=== PATIENT | female | born 1980 | race Caucasian/White ===

== ENCOUNTER 2017-09-02 17:06 | Observation (INO) ==
[2017-09-02] MEDS ORDERED: 0.9 % Sodium Chloride 1,000 ML IVC ONE (17:50)
[2017-09-02] MEDS ORDERED: Prochlorperazine 10 MG/2 ML VIAL IVP STA (17:50)
[2017-09-02] MEDS ORDERED: Dexamethasone 4 MG/ML VIAL IVP ONE (18:07)
--- NOTE | 2017-09-02 18:07 | Emergency Department Note ---
Disposition Clinical Impression: Intractable pain Headache Qualifiers: Headache type: unspecified Headache chronicity pattern: acute headache Intractability: intractable Qualified Code(s): R51 - Headache Disposition: Admitted As Inpatient Condition: Fair Referrals: Bob Solomon MD [Primary Care Provider] - Forms: ED Satisfaction Letter Headache HPI - General Chief Complaint: ED Headache Stated Complaint: Migraine Time Seen by Provider: 09/02/17 17:24 Nursing Notes Reviewed: Yes Vital Signs Reviewed: Yes - History of Present Illness HPI Narrative: 37-year-old female presented to the emergency department with concern for headache. Patient states that she was seen here in the emergency department received a CT scan and was offered admission but decided to go home. Patient was given medications yesterday. Patient used to have a neurologist but does not follow up with one. She takes Urised and ibuprofen at home. Patient states she is also not seen her primary care provider for this either. Patient reports that the headache that started yesterday did not resolve. She reported sudden onset of numbness and tingling of the left upper extremities fingertips that is atypical for headache. She reports that the pain is mostly centered on the right side of her face. Reports decreased sensation on the right side of her face as well. No slurred speech. No other neurologic abnormalities. Patient denies any blurry vision. She does report having to focus a little bit harder. Denies any pain behind the eyes or in the eye. Pain Scale: 10 - Related Data Home Medications Medication Instructions Recorded Confirmed Ibuprofen 11/05/16 Albuterol Sulfate [Albuterol 1 IH TID 05/23/17 Inhaler] Furosemide [Lasix] 20 mg PO DAILY 05/23/17 05/23/17 Loratadine [Claritin] 10 mg PO DAILY 05/23/17 05/23/17 Previous Rx's Medication Instructions Recorded Acetaminophen [Tylenol] 325 mg PO Q6HR PRN #10 tablet 03/21/15 Benzonatate [Tessalon] 100 mg PO TID PRN #15 capsule 05/23/17 Promethazine [Phenergan] 12.5 mg PO Q6HR PRN #15 tablet 05/23/17 Acetaminophen/Butalbital/Caffe 1 each PO Q6HR #20 tablet 09/01/17 [Fioricet] Ibuprofen [Motrin] 600 mg PO Q6HR PRN #20 tab 09/01/17 Allergies Allergy/AdvReac Type Severity Reaction Status Date / Time clindamycin Allergy Hives Verified 09/01/17 10:48 ondansetron Allergy Hives Verified 09/01/17 10:48 [From Zofran (as hydrochloride)] Penicillins Allergy Unresponsiv Verified 09/01/17 10:48 e tramadol Allergy Hives Verified 09/01/17 10:48 All systems ED: reviewed and negative except as stated. Review of Systems: As Per HPI Constitutional: Denies: fever Cardiovascular: Denies: chest pain Respiratory: Denies: cough Gastrointestinal: Denies: abdominal pain, nausea, vomiting Genitourinary: Denies: urgency, dysuria, frequency Musculoskeletal: Reports: neck pain Integumentary: Denies: rash Neurological: Reports: headache, numbness, paresthesias Headache PMH - Past Medical History Medical history: Reports: asthma, COPD, kidney stones, migraine, other Female Surgical History: Reports: hysterectomy, orthopedic, other, other Psychiatric history: Reports: anxiety, panic disorder RESPIRATORY CARE SPECIALIST history: Reports: no RESPIRATORY CARE SPECIALIST history, other - Social History Smoking Status: Current every day smoker Alcohol use: Reports: none Drug use: Reports: none Physical Exam - Head Head exam: atraumatic, normocephalic - Eye Eye exam: Present: EOMI. Absent: scleral icterus - ENT ENT exam: normal exam, normal oropharynx - Neck Neck exam: Present: trachea midline. Absent: tenderness, meningismus - Chest Chest inspection: Present: normal inspection, symmetric chest wall rise - Respiratory Respiratory exam: Present: normal lung sounds bilaterally. Absent: respiratory distress, accessory muscle use - Cardiovascular Cardiovascular exam: Present: normal rhythm, tachycardia - Abdominal Exam Abdominal exam: Present: soft, Non-Tender. Absent: distention, guarding, rebound - Back Exam Back exam: Present: full ROM - Neurological Exam Neurological exam: Present: alert, oriented X3 - Psychiatric Psychiatric exam: Present: anxious - Skin Skin exam: Present: warm, dry, intact Course Vital Signs Temperature 98.0 F 09/02/17 17:07 Pulse Rate 117 09/02/17 17:07 Respiratory Rate 16 09/02/17 17:07 Blood Pressure 129/77 09/02/17 17:07 O2 Sat by Pulse Oximetry 97 09/02/17 17:07 Temperature 98.0 F 09/02/17 18:21 Pulse Rate 117 09/02/17 18:21 Respiratory Rate 16 09/02/17 18:21 Blood Pressure 129/77 09/02/17 18:21 O2 Sat by Pulse Oximetry 97 09/02/17 18:21 Oxygen Delivery Oxygen Delivery Room Air Headache - MDM Narrative Medical decision making narrative: 37-year-old female presented to emergency department with concern for headache that has some typical features of her normal headaches, but also some atypical features as well. We will obtain CT scan of the head did not reveal any evidence of an acute intracranial abnormality. Do not suspect subarachnoid hemorrhage at this time as patient's headache was not thunderclap, and has some typical features of her normal headaches. Patient has mild leukocytosis, but does not have fever, or meningismus. Nontoxic appearing as well. No concern for meningitis at this time. EKG was obtained not revealing any evidence of ischemia or QT prolongation. Patient mildly hypokalemic at 3.3. We have replaced his 40 meq of potassium. Patient was given Compazine, Benadryl, IV fluids initially. She had taken ibuprofen prior to coming to the emergency department. Patient states that her headache was a 10 out of 10 and is now an 8 out of 10. We then gave 5 mg of Haldol IV. After 30 minutes, patient still had headache. Patient requests admission as she still having persistent pain. Patient was admitted to hospitalist, Dr. Ford, as patient is having intractable pain here in the emergency department. Per his request, I spoke with Dr. Barkley, the neurologist. I asked him if he thought it was okay to give sumatriptan and after all the previous medications. He said to provide this and to also add Toradol. As patient has not had nonsteroidal anti- inflammatories within the last few hours, given that as well. Head CT 09/02/17 17:51 IMPRESSION: No acute intracranial abnormality. D/ / Petra Guy MD / Petra Guy MD Interpreting Provider: Petra Guy MD Vital Signs Temperature 98.0 F 09/02/17 17:07 Pulse Rate 117 09/02/17 17:07 Respiratory Rate 16 09/02/17 17:07 Blood Pressure 129/77 09/02/17 17:07 O2 Sat by Pulse Oximetry 97 09/02/17 17:07 Temperature 98.0 F 09/02/17 18:21 Pulse Rate 117 09/02/17 18:21 Respiratory Rate 16 09/02/17 18:21 Blood Pressure 129/77 09/02/17 18:21 O2 Sat by Pulse Oximetry 97 09/02/17 18:21 Oxygen Delivery Oxygen Delivery Room Air - Lab Data Result diagrams: 09/02/17 18:00 09/02/17 18:00 Lab Results 09/02/17 09/02/17 Range/Units 18:00 18:00 WBC 14.7 H (4.3-11.1) K/mcL RBC 3.96 (3.82-4.97) M/mcL Hgb 12.1 (11.5-15.4) g/dL Hct 36.4 (35.3-44.9) % MCV 91.9 (83.0-100.0) fL MCH 30.6 (28.0-33.3) pg MCHC 33.2 (31.6-35.5) g/dL RDW 12.0 (11.5-14.5) % Plt Count 272 (140-400) K/mcL MPV 9.2 L (9.4-12.4) fL Immature Gran % 0.3 (0-4) % Seg Neutrophils % 67.3 % Lymphocytes % 25.0 % Monocytes % 6.7 % Eosinophils % 0.5 % Basophils % 0.2 % Neutrophils # 9.9 H (1.6-8.9) K/mcL Lymphocytes # 3.7 (0.6-4.6) K/mcL Monocytes # 1.0 (0.0-1.3) K/mcL Eosinophils # 0.1 (0.0-0.6) K/mcL Basophils # 0.0 (0.0-0.2) K/mcL Sodium 141 (136-145) mEq/L Potassium 3.3 L (3.5-5.1) mEq/L Chloride 110 H (98-107) mEq/L Carbon Dioxide 27 (23-29) mEq/L BUN 7 (6-20) mg/dL Creatinine 0.75 (0.60-1.20) mg/dL Est GFR ( Amer) > 60 (> 60) Est GFR (Non-Af Amer) > 60 (> 60) BUN/Creatinine Ratio 9 (6-26) Glucose 120 H (70-105) mg/dL Calculated Osmolality 291 (280-300) Calcium 9.0 (8.6-10.3) mg/dL - EKG Data EKG attestation: Yes I reviewed and interpreted this EKG. EKG results narrative: 17:53 Ventricular rate 105 bpm, MA interval 129 ms, QS jehovah's witness 86 segs, QT 326 ms , QTC 387 ms, normal axis. Sinus tachycardia with a ventricular rate of 105 bpm. There is no evidence of QT prolongation on this EKG. No evidence of any ischemic ST changes.
[2017-09-02 18:12] LABS: Basophils % 0.2 %; Eosinophils # 0.1 K/mcL (0.0-0.6); Eosinophils % 0.5 %; Hematocrit 36.4 % (35.3-44.9); Hemoglobin 12.1 g/dL (11.5-15.4); Immature Granulocytes % 0.3 % (0-4); Lymphocytes # 3.7 K/mcL (0.6-4.6); Mean Corpuscular HGB Conc 33.2 g/dL (31.6-35.5); Mean Corpuscular Hemoglobin 30.6 pg (28.0-33.3); Mean Corpuscular Volume 91.9 fL (83.0-100.0); Mean Platelet Volume 9.2 fL (9.4-12.4); Monocytes % 6.7 %; Neutrophils # 9.9 K/mcL (1.6-8.9); Platelet Count 272 K/mcL (140-400); Red Blood Count 3.96 M/mcL (3.82-4.97); Segmented Neutrophils % 67.3 %
[2017-09-02 18:30] LABS: BUN/Creatinine Ratio 9 (6-26); Blood Urea Nitrogen 7 mg/dL (6-20); Carbon Dioxide 27 mEq/L (23-29); Chloride 110 mEq/L (98-107); Glucose 120 mg/dL (70-105); Osmolality,Calculated 291 (280-300); Potassium 3.3 mEq/L (3.5-5.1); Sodium 141 mEq/L (136-145); eGFR For African Americans > 60 (> 60); eGFR For Non-African Americans > 60 (> 60)
[2017-09-02] MEDS ORDERED: Haloperidol Lactate 5 MG/ML VIAL IVP ONE (19:28)
[2017-09-02] MEDS ORDERED: Ketorolac 15 MG/ML VIAL IVP ONE (20:33)
[2017-09-02] MEDS ORDERED: SUMAtriptan 6 MG/0.5 ML SQ ONE (20:33)
[2017-09-02] MEDS ORDERED: Naloxone 0.4 MG/ML INJ IVP PRN (20:48)
--- NOTE | 2017-09-02 20:53 | Emergency Department Note ---
Disposition Clinical Impression: Intractable pain Headache Qualifiers: Headache type: unspecified Headache chronicity pattern: acute headache Intractability: intractable Qualified Code(s): R51 - Headache Disposition: Admitted As Inpatient Condition: Fair General Adult HPI - General Chief complaint: ED Headache Stated complaint: Migraine Time Seen by Provider: 09/02/17 17:24 Source: patient, family - History of Present Illness Pain Scale: 10 - Related Data Home Medications Medication Instructions Recorded Confirmed No Known Home Drugs 09/02/17 09/02/17 Allergies Allergy/AdvReac Type Severity Reaction Status Date / Time clindamycin Allergy Hives Verified 09/02/17 21:23 ondansetron Allergy Hives Verified 09/02/17 21:23 [From Zofran (as hydrochloride)] Penicillins Allergy Unresponsiv Verified 09/02/17 21:23 e tramadol Allergy Hives Verified 09/02/17 21:23 Constitutional: Denies: fever Cardiovascular: Denies: chest pain Respiratory: Denies: cough Gastrointestinal: Denies: abdominal pain, nausea, vomiting Genitourinary: Denies: urgency, dysuria, frequency Musculoskeletal: Reports: neck pain Integumentary: Denies: rash Neurological: Reports: headache, numbness, paresthesias Past Medical History - Past Medical History Medical history: Reports: asthma, COPD, kidney stones, migraine, other Surgical history: Reports: hysterectomy, orthopedic, other, other Psychiatric history: Reports: anxiety, panic disorder IT INVESTMENT/PORTFOLIO MANAGER history: Reports: no IT INVESTMENT/PORTFOLIO MANAGER history, other - Social History Smoking Status: Current every day smoker Smokeless Tobacco Status: No Alcohol use: Reports: none Drug use: Reports: none Physical Exam - General General appearance: alert, in no apparent distress Course Vital Signs Temperature 98.0 F 09/02/17 17:07 Pulse Rate 117 09/02/17 17:07 Respiratory Rate 16 09/02/17 17:07 Blood Pressure 129/77 09/02/17 17:07 O2 Sat by Pulse Oximetry 97 09/02/17 17:07 Temperature 98.0 F 09/02/17 18:21 Pulse Rate 117 09/02/17 18:21 Respiratory Rate 16 09/02/17 18:21 Blood Pressure 129/77 09/02/17 18:21 O2 Sat by Pulse Oximetry 97 09/02/17 18:21 Oxygen Delivery Oxygen Delivery Room Air Medical Decision Making - Lab Data Result diagrams: 09/02/17 18:00 09/02/17 18:00 Lab Results 09/02/17 09/02/17 Range/Units 18:00 18:00 WBC 14.7 H (4.3-11.1) K/mcL RBC 3.96 (3.82-4.97) M/mcL Hgb 12.1 (11.5-15.4) g/dL Hct 36.4 (35.3-44.9) % MCV 91.9 (83.0-100.0) fL MCH 30.6 (28.0-33.3) pg MCHC 33.2 (31.6-35.5) g/dL RDW 12.0 (11.5-14.5) % Plt Count 272 (140-400) K/mcL MPV 9.2 L (9.4-12.4) fL Immature Gran % 0.3 (0-4) % Seg Neutrophils % 67.3 % Lymphocytes % 25.0 % Monocytes % 6.7 % Eosinophils % 0.5 % Basophils % 0.2 % Neutrophils # 9.9 H (1.6-8.9) K/mcL Lymphocytes # 3.7 (0.6-4.6) K/mcL Monocytes # 1.0 (0.0-1.3) K/mcL Eosinophils # 0.1 (0.0-0.6) K/mcL Basophils # 0.0 (0.0-0.2) K/mcL Sodium 141 (136-145) mEq/L Potassium 3.3 L (3.5-5.1) mEq/L Chloride 110 H (98-107) mEq/L Carbon Dioxide 27 (23-29) mEq/L BUN 7 (6-20) mg/dL Creatinine 0.75 (0.60-1.20) mg/dL Est GFR ( Amer) > 60 (> 60) Est GFR (Non-Af Amer) > 60 (> 60) BUN/Creatinine Ratio 9 (6-26) Glucose 120 H (70-105) mg/dL Calculated Osmolality 291 (280-300) Calcium 9.0 (8.6-10.3) mg/dL Attestation Statement - Attestation Attestation: I examined this patient and my medical decision-making was reviewed with the Resident Physician, Dr. Vu. I agree with the documented findings, disposition and treatment plan as described except to the extent set forth below. Patient is a 37-year-old white female with a history of chronic migraine headaches who presented initially to the emergency department yesterday and was seen and evaluated underwent CT imaging which was within normal limits received pain medicine with improvement of her symptoms and was discharged home. Patient required multiple doses medications and was offered admission for symptomatic control and she declined but returns tonight stating that she is not had resolution of her headache. Headache was gradual in onset, similar in character location and severity to prior headaches but patient is now complaining of a one hour history of numbness that she is feeling her face and fingertips which is new and not typically associated with her headaches. Patient denies any fevers or chills, no photophobia, no other associated symptoms. Patient had followed a neurologist in the past but not currently and she has not followed up with her family doctor. I agree with patient's physical exam findings as documented. Vital signs are stable. Patient's neurologic exam is within normal limits with the exception of subjective paresthesias Patient received initially Compazine and Benadryl for her symptoms she got improvement from a 10 out of 10 to an 8 out of 10 with this medication. EKG was performed which showed a normal sinus rhythm with no QT prolongation so patient was administered 5 mg Haldol IV which although improved her headache she stating that she still having intractable pain. Patient does not feel comfortable going home does not feel that she has had significant enough improvement in her symptoms. Case was discussed with the hospitalist as well as neurology was consulate from the ED and will be admitted for further evaluation and management of her chronic migraine headaches.
[2017-09-02] MEDS ORDERED: Ringers Solution, Lactated 1,000 ML IVC SCH (21:00)
--- NOTE | 2017-09-02 21:03 | Internal Med History&Physical ---
Date of Encounter: 09/02/17 Time of Encounter: 21:07 Internal Medicine - H&P: HPI Chief complaint: Refractory migraine History of present illness: Ms. 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 She is under the care of Dr. Solomon PCP and had been reported to have not filled multiple outpatient medications to include Topamax. Presented with migraine yesterday to the ER and was subsequently discharged home with first set, ibuprofen, Tylenol with no improvement leading to repeat visit to the ER. In the ER had a CT scan of the head without contrast which did not demonstrate acute abnormalities. She was given migraine cocktails with no improvement. In regards to her current migraine episode, she reported waking up at 5 AM yesterday morning with frontal migraine that is affecting her right side more than the left. Associated with an aura described as numbness and tingling of the left finger tips. Migraines were made worse with sound and light. Pain was described as sharp, 8 out of 10. EKG personally reviewed with rate of 105. Sinus tachycardia Past Med Surg Social Fam HX - Past Medical History Medical history: asthma, COPD, kidney stones, migraine, other Additional medical history: FREQUENT PNEUMONIA Psychiatric history: anxiety, panic disorder - Past Surgical History Surgical History: hysterectomy, orthopedic, other, other Additional surgical history: ORIF LEFT ANKLE. CARDIAC ABLAISION. POSSIBLE DIAGNOSIS OF SVT. - Social History Smoking Status: Current every day smoker Smokeless Tobacco Status: No Alcohol use: none Drug use: none - Family History Mother Hx Family Cardiac Disorders: Yes (Myocardial Infarction, HTN) Father Hx Family Cardiac Disorders: Yes (HTN) Internal Medicine - H&P: Meds Acetaminophen [Tylenol] 325 mg PO Q6HR PRN #10 tablet 03/21/15 [Rx] Ibuprofen 11/05/16 [History] Albuterol Sulfate [Albuterol Inhaler] 1 IH TID 05/23/17 [History] Benzonatate [Tessalon] 100 mg PO TID PRN #15 capsule 05/23/17 [Rx] Furosemide [Lasix] 20 mg PO DAILY 05/23/17 [History] Loratadine [Claritin] 10 mg PO DAILY 05/23/17 [History] Promethazine [Phenergan] 12.5 mg PO Q6HR PRN #15 tablet 05/23/17 [Rx] Acetaminophen/Butalbital/Caffe [Fioricet] 1 each PO Q6HR #20 tablet 09/01/17 [Rx ] Ibuprofen [Motrin] 600 mg PO Q6HR PRN #20 tab 09/01/17 [Rx] 3 Allergy/AdvReac Type Severity Reaction Status Date / Time clindamycin Allergy Hives Verified 09/01/17 10:48 ondansetron Allergy Hives Verified 09/01/17 10:48 [From Zofran (as hydrochloride)] Penicillins Allergy Unresponsiv Verified 09/01/17 10:48 e tramadol Allergy Hives Verified 09/01/17 10:48 All Systems PM: A 10-system review of systems was performed and is negative for pertinent findings except as documented above in the HPI. - Constitutional Vitals: Temp Pulse Resp BP Pulse Ox 98.0 F 117 16 129/77 97 09/02/17 18:21 09/02/17 18:21 09/02/17 18:21 09/02/17 18:21 09/02/17 18:21 Internal Med - H&P Results - Labs CBC & Chem 7: 09/02/17 18:00 09/02/17 18:00 Labs: Short CBC 09/02/17 Range/Units 18:00 WBC 14.7 H (4.3-11.1) K/mcL Hgb 12.1 (11.5-15.4) g/dL Hct 36.4 (35.3-44.9) % Plt Count 272 (140-400) K/mcL Neutrophils # 9.9 H (1.6-8.9) K/mcL BMP 09/02/17 18:00 Sodium 141 Potassium 3.3 L Chloride 110 H Carbon Dioxide 27 BUN 7 Creatinine 0.75 Glucose 120 H Calcium 9.0 - Impressions ITS Impressions Head CT 09/02/17 17:51 IMPRESSION: No acute intracranial abnormality. D/ / Petra Guy MD / Petra Guy MD Interpreting Provider: Petra Guy MD - Assessment and plan (1) Refractory migraine with aura Current Visit: Yes Status: Acute Assessment and plan: trial of IV toradol, IV hydrocortisone, IV valproate monitor course (2) Hemangioma Current Visit: Yes Status: Acute Assessment and plan: hx of hemangioma since childhood consider outpatient follow up surveillance CT head w/o contrast no overt abnormalities - Time Spent With Patient Total time spent is greater than 50% in coordination of care (as documented) at patient's floor/unit and/or counseling patient:
[2017-09-03] MEDS ORDERED: VALPROIC ACID IVPB SCH
[2017-09-03] MEDS ORDERED: SODIUM CHLORIDE 0.9% IVPB SCH
[2017-09-03] MEDS: Valproic Acid INJ 500 MG in 0.9 % Sodium Chloride 100 ML IVPB SCH ×2 (00:06→08:54)
[2017-09-03] MEDS: Hydrocortisone Sodium Succ 100 MG/2 ML VIAL IVP SCH ×2 (00:08→08:54)
[2017-09-03] MEDS ORDERED: Ketorolac 15 MG/ML VIAL IVP SCH (09:00)
[2017-09-03 11:26] VITALS: BP 143/80
[2017-09-03 11:35] LABS: Bilirubin,Urine Negative (Negative); Blood,Urine Negative (Negative); Clarity,Urine Clear (Clear); Color,Urine Yellow (Yellow); Glucose,Urine (UA) Normal (Normal); Ketones,Urine Negative (Negative); Leukocyte Esterase,Urine Negative (Negative); Nitrite,Urine Negative (Negative); PH,Urine 6.5 pH Units (5.0-8.0); Protein,Urine Negative (Neg-Trace); Specific Gravity,Urine 1.019 (1.010-1.025); Urobilinogen,Urine Normal (Normal)
--- NOTE | 2017-09-03 14:33 | Discharge Summary ---
- NOTES TO OUTPATIENT PROVIDER Notes to Outpatient Provider: Recommend routine follow-up Orders not resulted at time of discharge: Pending orders 09/03/17 14:18 CBC no Diff [Complete Blood Count w/o Diff] [HEME] Stat Date of Encounter: 09/03/17 Time of Encounter: 14:31 - Discharge Diagnosis (1) Refractory migraine with aura Priority: Primary Status: Acute Assessment and Plan: presented with headache. Has known migraines. Head CT nonacute. Headache improved with IV toradol, IV hydrocortisone, IV valproate. Discharge home on Imitrex. Recommend follow-up with PCP within 1-2 weeks (2) Hemangioma Priority: Primary Status: Acute Assessment and Plan: hx of hemangioma since childhood. CT head w/o contrast no overt abnormalities. Consider outpatient follow up surveillance Hospital course: Please see assessment and plan for hospital course Discharge discussed with: patient (Seen and bedside. Patient is new to me, information obtained from chart review and patient report. Still has a headache but significantly improved from yesterday. Some mild photophobia. Overall feels better would like to go home today.) - Time Spent with Patient Total time spent providing and/or coordinating discharge services: - Discharge Medications Prescriptions: SUMAtriptan succinate [Imitrex] 50 mg PO PRN PRN #7 tablet PRN Reason: Headache Home Medications: SUMAtriptan succinate [Imitrex] 50 mg PO PRN PRN #7 tablet 09/03/17 [Rx] Allergies/Adverse Reactions: 3 Allergy/AdvReac Type Severity Reaction Status Date / Time clindamycin Allergy Hives Verified 09/02/17 21:23 ondansetron Allergy Hives Verified 09/02/17 21:23 [From Zofran (as hydrochloride)] Penicillins Allergy Unresponsiv Verified 09/02/17 21:23 e tramadol Allergy Hives Verified 09/02/17 21:23 Date of admission: 09/02/17 22:44 Primary care physician: Bob Solomon MD Discharging clinician: Angela Rodarte Anticipated date of discharge: 09/03/17 - Constitutional Vitals: Temp Pulse Resp BP Pulse Ox 98 F 77 16 143/80 97 09/03/17 11:25 09/03/17 11:25 09/03/17 11:25 09/03/17 11:25 09/03/17 11:25 General appearance: Present: A&O X 3, pleasant, no acute distress - Head Head exam: Present: atraumatic, normocephalic - Eye Eye exam: Present: PERRL, conjuntiva pink, sclera anicteric Pupils: Present: PERRL - Neck Neck exam general surgery: Present: supple, trachea midline. Absent: lymphadenopathy - Respiratory Respiratory exam: Present: CTAB. Absent: accessory muscle use, rales, rhonchi, wheezes - Cardiovascular Cardiovascular exam: Present: RRR, +S1, +S2. Absent: diastolic murmur, gallop, rubs, systolic murmur - GI/Abdominal GI/Abdominal exam: Present: normal bowel sounds, soft, no peritoneal signs. Absent: distended, tenderness - Extremities Exam Extremities exam: Present: warm, radial pulses palpable and symmetrical. Absent : calf tenderness, cyanotic, pedal edema - Neurological Exam Neurological exam: Present: CN II-XII intact, oriented X3, no focal deficits. Absent: pronater drift, facial droop, speech deficit - Skin Skin exam: Present: dry, intact - Patient Status Disposition: Home, Self-Care Condition: Good Overall status at discharge: patient is progressing back to baseline - Discharge Instructions Instructions: Sumatriptan (By mouth), Migraine Headache (DC) Follow Up With: Bob Sloomon MD [Primary Care Provider] - (Please call for follow-up appointment within 1-2 weeks) - Diet and Activity Activity: increase activity as tolerated Diet: advance to your usual diet
[2017-09-03 14:36] LABS: Hematocrit 37.3 % (35.3-44.9); Hemoglobin 12.5 g/dL (11.5-15.4); Mean Corpuscular HGB Conc 33.5 g/dL (31.6-35.5); Mean Corpuscular Hemoglobin 31.6 pg (28.0-33.3); Mean Corpuscular Volume 94.2 fL (83.0-100.0); Mean Platelet Volume 9.3 fL (9.4-12.4); Platelet Count 257 K/mcL (140-400); Red Blood Count 3.96 M/mcL (3.82-4.97)
--- NOTE | 2017-09-06 20:37 | Electrocardiograph Report ---
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
== END 2017-09-03 16:46 | disposition home or self-care (01) ==
LOC: 3BNU 17:06 → EMEROO 17:06 → 3BNU 23:32
PROVIDERS: ADMIT Family Medicine; ATTEND Family Medicine

== ENCOUNTER 2019-02-07 13:23 | Observation (INO) ==
[2019-02-07 14:17] LABS: Basophils % 0.4 %; Eosinophils # 0.3 K/mcL (0.0-0.6); Hematocrit 40.5 % (35.3-44.9); Hemoglobin 13.3 g/dL (11.5-15.4); Immature Granulocytes % 0.3 % (0-4); Lymphocytes # 1.9 K/mcL (0.6-4.6); Lymphocytes % 21.1 %; Mean Corpuscular HGB Conc 32.8 g/dL (31.6-35.5); Mean Corpuscular Volume 94.4 fL (83.0-100.0); Mean Platelet Volume 8.8 fL (9.4-12.4); Monocytes # 0.6 K/mcL (0.0-1.3); Monocytes % 6.7 %; Neutrophils # 6.1 K/mcL (1.6-8.9); Platelet Count 278 K/mcL (140-400); Red Blood Count 4.29 M/mcL (3.82-4.97); Red Cell Distribution Width 12.3 % (11.5-14.5); Segmented Neutrophils % 68.5 %
[2019-02-07 14:32] LABS: BUN/Creatinine Ratio 10 (6-26); Blood Urea Nitrogen 7 mg/dL (6-20); Calcium 9.4 mg/dL (8.6-10.3); Carbon Dioxide 29 mEq/L (23-29); Chloride 100 mEq/L (98-107); Glucose 109 mg/dL (70-105); Osmolality,Calculated 279 (280-300); Potassium 3.9 mEq/L (3.5-5.1); Sodium 135 mEq/L (136-145); eGFR For African Americans > 60 (> 60); eGFR For Non-African Americans > 60 (> 60)
[2019-02-07 14:52] LABS: Bilirubin,Urine Negative (Negative); Blood,Urine Large (Negative); Clarity,Urine Turbid (Clear); Color,Urine Yellow (Yellow); Glucose,Urine (UA) Normal (Normal); Ketones,Urine Negative (Negative); Leukocyte Esterase,Urine Large (Negative); Nitrite,Urine Positive (Negative); Protein,Urine 100 mg/dL (Neg-Trace); Specific Gravity,Urine 1.013 (1.010-1.025); Urobilinogen,Urine Normal (Normal)
[2019-02-07 14:55] LABS: Bacteria,Urine Many per hpf (None-Few); Hyaline Casts,Urine Few per lpf (None-Few); RBC,Urine 15-30 per hpf (0-3); Squamous Epithelial Cell,Urine Many per lpf (None-Few); WBC,Urine TNTC per hpf (0-3)
[2019-02-07] MEDS ORDERED: 0.9 % Sodium Chloride 1,000 ML IVC STA (14:58)
[2019-02-07] MEDS ORDERED: *HR* FentaNYL (PF) 100 MCG/2 ML VIAL IVP ONE ×2 (15:03→16:38)
[2019-02-07] MEDS ORDERED: cefTRIAXone 1,000 MG in Water for inj. (sterile) 10 ML IVP ONE (17:26)
[2019-02-07] MEDS ORDERED: *HR* HYDROcodone/Acet 5/325 mg TABLET PO PRN (18:32)
[2019-02-07] MEDS ORDERED: Naloxone 0.4 MG/ML INJ IVP PRN (18:32)
[2019-02-07] MEDS: *HR* OxyCODONE Immed Rel 5 MG TABLET PO PRN (20:25)
[2019-02-07] MEDS: 0.9 % Sodium Chloride 1,000 ML IVC SCH (20:27)
[2019-02-08] MEDS: *HR* OxyCODONE Immed Rel 5 MG TABLET PO PRN ×4 (03:39→23:07)
[2019-02-08 06:27] LABS: Basophils % 0.3 %; Eosinophils # 0.2 K/mcL (0.0-0.6); Hematocrit 35.8 % (35.3-44.9); Hemoglobin 12.1 g/dL (11.5-15.4); Immature Granulocytes % 0.4 % (0-4); Mean Corpuscular HGB Conc 33.8 g/dL (31.6-35.5); Mean Corpuscular Hemoglobin 30.8 pg (28.0-33.3); Mean Corpuscular Volume 91.1 fL (83.0-100.0); Mean Platelet Volume 8.6 fL (9.4-12.4); Monocytes # 0.8 K/mcL (0.0-1.3); Monocytes % 9.5 %; Neutrophils # 4.9 K/mcL (1.6-8.9); Platelet Count 250 K/mcL (140-400); Red Blood Count 3.93 M/mcL (3.82-4.97); Red Cell Distribution Width 12.1 % (11.5-14.5); Segmented Neutrophils % 61.8 %; White Blood Count 7.9 K/mcL (4.3-11.1)
[2019-02-08] MEDS: 0.9 % Sodium Chloride 1,000 ML IVC SCH ×5 (06:38→21:39)
[2019-02-08 06:47] LABS: Alanine Aminotransferase 7 Units/L (7-52); Albumin 3.6 g/dL (3.5-5.7); Albumin/Globulin Ratio 1.4 (1.1-2.2); Alkaline Phosphatase 57 Units/L (34-104); Aspartate Amino Transferase 8 Units/L (13-39); BUN/Creatinine Ratio 12 (6-26); Bilirubin,Total 0.4 mg/dL (0.3-1.0); Blood Urea Nitrogen 8 mg/dL (6-20); Calcium 8.5 mg/dL (8.6-10.3); Carbon Dioxide 26 mEq/L (23-29); Chloride 102 mEq/L (98-107); Globulin 2.5 g/dL (2.4-3.5); Glucose 124 mg/dL (70-105); Osmolality,Calculated 276 (280-300); Sodium 133 mEq/L (136-145); Total Protein 6.1 g/dL (6.4-8.9); eGFR For African Americans > 60 (> 60); eGFR For Non-African Americans > 60 (> 60)
[2019-02-08] MEDS: Acetaminophen 325 MG TABLET PO PRN ×2 (08:06→19:51)
[2019-02-08] MEDS: Cefepime HCl 2,000 MG in Water for inj. (sterile) 20 ML IVP SCH ×2 (08:49→21:33)
[2019-02-08] MEDS ORDERED: cefTRIAXone 2,000 MG in Water for inj. (sterile) 20 ML IVP SCH (18:00)
[2019-02-08 22:34] LABS: Chlamydia Trachomatis DNA Ur NOT DETECTED (Not Detect)
[2019-02-09] MEDS: 0.9 % Sodium Chloride 1,000 ML IVC SCH ×3 (00:16→20:02)
[2019-02-09 05:27] LABS: Alanine Aminotransferase 10 Units/L (7-52); Albumin 3.9 g/dL (3.5-5.7); Albumin/Globulin Ratio 1.3 (1.1-2.2); Alkaline Phosphatase 82 Units/L (34-104); Aspartate Amino Transferase 13 Units/L (13-39); BUN/Creatinine Ratio 9 (6-26); Bilirubin,Total 0.3 mg/dL (0.3-1.0); Blood Urea Nitrogen 6 mg/dL (6-20); Calcium 8.7 mg/dL (8.6-10.3); Carbon Dioxide 20 mEq/L (23-29); Chloride 105 mEq/L (98-107); Glucose 94 mg/dL (70-105); Osmolality,Calculated 277 (280-300); Potassium 4.3 mEq/L (3.5-5.1); Sodium 135 mEq/L (136-145); Total Protein 6.9 g/dL (6.4-8.9); eGFR For African Americans > 60 (> 60); eGFR For Non-African Americans > 60 (> 60)
[2019-02-09] MEDS: *HR* OxyCODONE Immed Rel 5 MG TABLET PO PRN ×3 (06:23→20:00)
[2019-02-09] MEDS: Cefepime HCl 2,000 MG in Water for inj. (sterile) 20 ML IVP SCH (08:26)
[2019-02-09 09:34] LABS: Basophils % 0.4 %; Eosinophils # 0.1 K/mcL (0.0-0.6); Eosinophils % 1.6 %; Hemoglobin 11.4 g/dL (11.5-15.4); Immature Granulocytes % 0.5 % (0-4); Lymphocytes # 2.1 K/mcL (0.6-4.6); Lymphocytes % 25.6 %; Mean Corpuscular HGB Conc 33.5 g/dL (31.6-35.5); Mean Corpuscular Hemoglobin 31.4 pg (28.0-33.3); Mean Corpuscular Volume 93.7 fL (83.0-100.0); Mean Platelet Volume 9.1 fL (9.4-12.4); Monocytes # 0.9 K/mcL (0.0-1.3); Monocytes % 11.5 %; Neutrophils # 4.9 K/mcL (1.6-8.9); Platelet Count 207 K/mcL (140-400); Red Blood Count 3.63 M/mcL (3.82-4.97); Red Cell Distribution Width 11.9 % (11.5-14.5); Segmented Neutrophils % 60.4 %; White Blood Count 8.1 K/mcL (4.3-11.1)
[2019-02-09] MEDS ORDERED: cefTRIAXone 2,000 MG in Water for inj. (sterile) 20 ML IVP SCH (10:00)
[2019-02-09] MEDS ORDERED: Aminoglycoside Consult 1 EACH MC ONE (19:17)
[2019-02-10] MEDS: *HR* OxyCODONE Immed Rel 5 MG TABLET PO PRN (04:10)
[2019-02-10] MEDS: 0.9 % Sodium Chloride 1,000 ML IVC SCH (05:42)
[2019-02-10] MEDS ORDERED: levoFLOXacin 750 MG TABLET PO SCH (09:00)
[2019-02-10 11:02] VITALS: BP 95/61
== END 2019-02-10 14:17 | disposition home or self-care (01) ==
LOC: 3BNU 13:23 → EMEROOARM 13:23 → SUATTDRO 19:16 → 3BNU 20:03
PROVIDERS: ADMIT Internal Medicine; ATTEND Family Medicine